=== PATIENT | female | born 1980 | race Caucasian/White ===

== ENCOUNTER 2021-07-22 16:23 | Emergency (ER) | payer BC ==
[2021-07-22 17:37] LABS: CHLORIDE,CL 105 mmol/L (98-107); SODIUM,NA 139 mmol/L (136-145)
[2021-07-22 17:40] LABS: ANION GAP 11.8 mmol/L (5-15)
[2021-07-22 18:00] LABS: PTT,PARTIAL THROMBOPLSTIN TIME 25.4 SEC (20.5-30.9)
== END 2021-07-22 18:14 | disposition home or self-care (01) ==
LOC: VM.ED 16:23
DX: R60.0 Localized edema (principal); D64.9 Anemia, unspecified; Z91.040 Latex allergy status
CPT/HCPCS: 36415; 80053; 83880; 84484; 85025; 85379; 85610; 85730; 93005; 93010; 99284; 99285-25